=== PATIENT | female | born 1960 | race Two or more races ===

== ENCOUNTER 2024-05-07 02:38 | Emergency (ER) | payer OTHER, BC, SELFPAY ==
[2024-05-07 02:39] VITALS: BMI 32.3
[2024-05-07 03:32] VITALS: BP 153/86; PULSE 85; RESP 18; TEMP 36.8; O2SAT 100
--- NOTE | 2024-05-07 03:50 | PD.EDURI ---
Upper Respiratory Inf. RME/HPI General Chief Complaint: Flu Like Symptoms Stated Complaint: COVID POSITIVE, HEADACHE, COUGH, NOT FEELING GOOD Time Seen by Provider: 05/07/24 03:50 Source: patient Arrival date/time: 05/07/24 02:38 63-year-old female past medical history of hypertension presents emergency department complaining of headache, cough, and not feeling well after testing positive for COVID this past Monday. Patient reports she is currently on Paxlovid medication and has improved symptoms but is requesting to get tested for COVID again due to family member at home also being sick. Mode of arrival: ambulatory Limitations: no limitations Related Data Home Medications ?Medication ?Instructions ?Recorded ?Confirmed Levothyroxine * (SYNTHROID *) 100 mcg PO ACBR #0 tabs 05/12/17 amlodipine 10 mg tablet (Norvasc) 10 mg PO QDAY #0 tabs 05/12/17 Previous Rx's ?Medication ?Instructions ?Recorded Hydrocodone Bit/Acetaminophen 1 tab PO Q4HR PRN PAIN #20 tabs 05/12/17 (Hydrocodone-Apap 10/325 Mg Tab) ondansetron 4 mg disintegrating 4 mg PO Q8H PRN nausea and 07/07/23 tablet vomiting #15 tabs Allergies Allergy/AdvReac Type Severity Reaction Status Date / Time VICRYL SUSTURE Allergy Severe body Uncoded 08/02/10 04:59 rejects susture Review of Systems Review of Systems Systems Reviewed: All systems reviewed, normal except as documented Constitutional Constitutional: Reports system reviewed and no additional complaints, except as documented, Denies body ache(s), Denies chills, Denies fever(s) and Reports headache(s) Eyes Eyes: Reports system reviewed and no additional complaints, except as documented and Denies change in vision ENT Ears, Nose, Mouth, and Throat: Reports system reviewed and no additional complaints, except as documented, Denies disequilibrium, Denies dizziness, Reports headache(s), Denies sore throat and Denies vertigo Cardiovascular Cardiovascular: Reports system reviewed and no additional complaints, except as documented, Denies chest pain and Denies dyspnea Respiratory Respiratory: Reports system reviewed and no additional complaints, except as documented, Denies chest congestion, Reports cough and Denies dyspnea Gastrointestinal Gastrointestinal: Reports system reviewed and no additional complaints, except as documented, Denies abdominal pain, Denies nausea and Denies vomiting Musculoskeletal Musculoskeletal: Reports system reviewed and no additional complaints, except as documented, Denies abnormal gait and Denies arthralgias Integumentary/Breasts Skin/Breast: Reports system reviewed and no additional complaints, except as documented, Denies erythema, Denies rash and Denies wounds Neurologic Neurologic: Reports system reviewed and no additional complaints, except as documented, Denies abnormal gait, Denies disequilibrium, Denies dizziness, Reports headache(s) and Denies vertigo Past Medical History Past Medical History CARDIAC: Positive Cardiac Disorders, Edema and Hypertension; Negative Congestive Heart Failure RESPIRATORY: Negative Chronic Obstructive Pulmonary Disease (COPD) GENITOURINARY: Negative Renal Disease REPRODUCTIVE: Positive Breast Cancer ENDOCRINE: Positive Endocrine Disorders, Hyperthyroidism and Hypothyroidism; Negative Diabetes Mellitus Type 1 or Diabetes Mellitus Type 2 OTHER HISTORY: Positive Cancer and Breast Cancer Surgical History SURGICAL: Positive Mastectomy (Right) Social History SMOKING STATUS: Current every day smoker ED Exam General Limitations: Present no limitations General appearance: Present alert and in no apparent distress Head Head exam: Present atraumatic Eye Eye exam: Present normal appearance, PERRL and EOMI ENT ENT exam: Present normal exam, normal oropharynx and mucous membranes moist Neck Neck exam: Present normal inspection, full ROM and trachea midline Chest Chest inspection: Present normal inspection and symmetric chest wall rise Respiratory Respiratory exam: Present normal lung sounds bilaterally Cardiovascular Cardiovascular exam: Present regular rate, normal rhythm and normal heart sounds Abdominal Exam Abdominal exam: Present soft and normal bowel sounds Extremities Exam Extremities exam: Present normal inspection and full ROM Back Exam Back exam: Present normal inspection and full ROM Neurological Exam Neurological exam: Present alert, oriented X3 and CN II-XII intact Psychiatric Psychiatric exam: Present normal affect and normal mood Skin Skin exam: Present warm, dry, intact and normal color Course Quality Measures none Vital Signs Vital signs: Vital Signs Temperature 98.2 F 05/07/24 03:32 Pulse Rate 85 05/07/24 03:32 Respiratory Rate 18 05/07/24 03:32 Blood Pressure 153/86 H 05/07/24 03:32 Pulse Oximetry (%) 100 05/07/24 03:32 Oxygen Delivery Method Room Air 05/07/24 03:32 100% room air within normal limits Upper Respiratory Infection MDM Narrative MDM Narrative:: 63-year-old female past medical history of hypertension presents emergency department complaining of headache, cough, and not feeling well after testing positive for COVID this past Monday. Patient reports she is currently on Paxlovid medication and has improved symptoms but is requesting to get tested for COVID again due to family member at home also being sick. Patient appears nontoxic and is hemodynamically stable. Patient speaking in full sentences and 100% on room air. No adventitious lung sounds on auscultation. Instructed patient to keep taking medication as prescribed by her provider and have close follow-up with primary care provider in 2 to 3 days. Instructed to return to emergency department for any worsening symptoms or as needed. Patient data External records reviewed:: [facility] previous records Clinical information provided by:: patient Social determinants that could affect healthcare access:: none Patient has the following chronic illnesses:: See chart How is presenting disease/condition affected by chronic disease/condition?: uneffected by Evaluation data The following diagnostics were reviewed and interpreted by me:: other (specify) (N/A) Lab and/or radiology exams considered but not ordered:: N/A Interpretation Summary: N/A Medications / Prescriptions Medications or Prescriptions considered but not ordered:: N/A Medication administrations:: N/A Consultations Consultation(s) initiated? (list below): No Diagnosis Upper Respiratory Differential Diagnosis: upper respiratory infection, otitis media, sinusitis, viral infection, bronchitis, influenza, pharyngitis and other (Pneumonia) Most likely diagnosis given after review of the tests above:: COVID-19 Admission Indicated Admission indicated?: not indicated Admission Request Was there a request for admission?: No Disposition Plan Disposition Plan: Discharge Discharge Attestation Discharge Attestation: The patient and all family members were given an opportunity to ask questions and understood the discharge instructions. Discharge instructions specifically effects, indications for sooner follow up or return to the emergency department, and the expected course of current diagnosis. Patient condition: Stable Discharge Plan Plan Patient Disposition: HOME (Self Care) Disposition Comment: Stable Prescriptions/Referrals Prescriptions/Med Rec: No Action amlodipine [Norvasc] 10 MG tablet 10 mg PO QDAY Qty: 0 Levothyroxine * (SYNTHROID *) 100 MCG tablet 100 mcg PO ACBR Qty: 0 Hydrocodone Bit/Acetaminophen (Hydrocodone-Apap 10/325 Mg Tab) 1 UDTAB tablet 1 tab PO Q4HR PRN (Reason: PAIN) Qty: 20 0RF ondansetron 4 mg tablet,disintegrating 4 mg PO Q8H PRN (Reason: nausea and vomiting) Qty: 15 0RF Problem List Clinical Impression: COVID-19 Patient/Caregiver Discharge Instructions Discharge Activity: activity as tolerated Education Materials: COVID-19 Prevention, COVID-19 Home Care Additional Instructions: Continue taking Paxlovid as prescribed by your primary care provider. Fluids as tolerated. Take Tylenol or ibuprofen as needed for fever or pain. Close follow-up with primary care provider in 2 to 3 days. Return to emergency department for any worsening symptoms or as needed. Print Language: Sami Stand Alone Forms: Janet Award Info., Patient Portal Info Letter PA/PROJECT CONTROL OFFICER Supervising Physician PA/PROJECT CONTROL OFFICER Supervising Physician: Dr. Hernandez
== END 2024-05-07 04:15 | disposition home or self-care (01) ==
LOC: SERX 04:07
PROVIDERS: Emergency Provider Emergency Medicine; PCP Internal Medicine
DX: U07.1 COVID-19 (principal); I10 Essential (primary) hypertension
CPT/HCPCS: 99281

== ENCOUNTER → 2024-06-27 | Outpatient (CLI) | payer OTHER, BC, SELFPAY ==
[2024-06-27 12:59] LABS: Basophils # (Auto) 0.1 Thou/mm3 (0.0-0.2); Basophils % (Auto) 1 % (0-2.5); Eosinophils # (Auto) 0.1 Thou/mm3 (0.0-0.5); Eosinophils % (Auto) 2 % (0-10); Hematocrit 36.3 % (36.0-46.0); Hemoglobin 12.5 g/dL (12.0-16.0); Immature Granulocytes % (Auto) 0 % (0-0); Immature Granulocytes Auto 0.02 Thou/mm3 (0.00-0.00); Lymphocytes # (Auto) 3.1 Thou/mm3 (1.0-4.8); Lymphocytes % (Auto) 42 % (10-50); Mean Corpuscular HGB Conc 34.4 g/dl (31.0-37.0); Mean Corpuscular Hemoglobin 29.6 pg (25.0-35.0); Mean Corpuscular Volume 86 fL (80-100); Monocytes # (Auto) 0.5 Thou/mm3 (0.0-0.8); Monocytes % (Auto) 7 % (0-12); Neutrophils # (Auto) 3.4 Thou/mm3 (1.8-7.7); Neutrophils % (Auto) 47 % (37-80); Nucleated Red Blood Cell % 0 /100 WBC (0); Platelet Count 309 Thou/mm3 (140-440); RDW Standard Deviation 41.8 fL (36.4-46.3); Red Blood Count 4.22 Miln/mm3 (4.00-5.20); White Blood Count 7.2 Thou/mm3 (3.6-11.0)
[2024-06-27 13:16] LABS: Bilirubin,Direct 0.3 mg/dL (0.0-0.3); Cardiac Risk Estimate 2.4 RATIO (3.7-5.6); Cholesterol 193 mg/dL (132-200); Free T4 (Free Thyroxine) 1.63 ng/dL (0.89-1.76); HDL Cholesterol 82 mg/dL (40-60); LDL Cholesterol,Calculated 89 mg/dL (0-130); Triglycerides 109 mg/dL (30-150)
[2024-06-27 13:21] LABS: Vitamin D 25 Hydroxy Total 28.2 ng/mL (7.3-40.2)
== END | disposition home or self-care (01) ==
PROVIDERS: PCP Internal Medicine; Referring Provider Internal Medicine; Visit Provider Internal Medicine
DX: E03.9 Hypothyroidism, unspecified (principal); K30 Functional dyspepsia; M54.50 Low back pain, unspecified; E03.4 Atrophy of thyroid (acquired)
CPT/HCPCS: 36415; 80061; 81001; 82248; 82306; 83013; 83014; 84439; 84443; 85025

== ENCOUNTER → 2024-06-27 | Outpatient (CLI) | payer OTHER, SELFPAY ==
--- NOTE | 2024-06-27 10:51 | XR_ITS ---
Examination: Lumbar spine, 5 views Technique: Lumbar spine AP, lateral, coned lateral lower lumbar spine, bilateral obliques 5 views Exam date and time: July 07, 2024 1053 hours Comparison April 23, 2019 INDICATIONS: Back surgery 2020 with back pain beginning 2 years ago FINDINGS: Moderate osteopenia Chronic wedging L1 T12 T11 and Transpedicular lumbar fusion L2-L4 Grade 1 anterolisthesis L4 on L5, 9 mm with fusion at this site Mild degenerative disc disease L5-S1 IMPRESSION: Status post lumbar fusions as above Mild degenerative disc disease L5-S1
== END | disposition home or self-care (01) ==
PROVIDERS: Referring Provider Orthopaedic Surgery; Visit Provider Orthopaedic Surgery
DX: M51.379 Other intervertebral disc degeneration, lumbosacral region without mention of lumbar back pain or lower extremity pain (principal); M43.26 Fusion of spine, lumbar region; Z98.890 Other specified postprocedural states
CPT/HCPCS: 72110

== ENCOUNTER → 2024-07-01 | Outpatient (CLI) | payer OTHER, BC, SELFPAY ==
--- NOTE | 2024-07-01 15:15 | XR_ITS ---
Examination: Screening digital mammography, bilateral Computer aided detection 3-D breast Tomosynthesis, bilateral Date and time of exam: 07/01/2024, 3:11 PM Comparisons: 05/30/2023 Indications: Screening Technique: Nonmagnified MLO, CC views of the breasts to been obtained, reconstructed from 3-D Tomosynthesis images. R2 computer aided detection program utilized for evaluation of suspicious masses and/or abnormal calcifications. 3-D Tomosynthesis images obtained. Technologist: Findings: There are scattered areas of fibroglandular density. Stable postoperative changes in the right breast. No evidence of abnormal masses or suspicious calcifications. Impression: BI-RADS category 1: Negative findings (within normal) Recommend 1 year follow-up mammogram
[2024-07-01 20:19] LABS: Urea Breath Test Negative (Negative)
== END | disposition home or self-care (01) ==
LOC: CDIM 14:58 → COPL 15:26
PROVIDERS: PCP Internal Medicine; Referring Provider Internal Medicine; Visit Provider Internal Medicine
DX: Z12.31 Encounter for screening mammogram for malignant neoplasm of breast (principal); R92.313 Mammographic fatty tissue density, bilateral breasts; K30 Functional dyspepsia; E03.9 Hypothyroidism, unspecified
CPT/HCPCS: 77063; 77067; 83013; 83014

== ENCOUNTER → 2024-11-26 | Outpatient (CLI) | payer OTHER, BC, SELFPAY ==
[2024-11-26 13:00] LABS: Basophils # (Auto) 0.1 Thou/mm3 (0.0-0.2); Basophils % (Auto) 1 % (0-2.5); Eosinophils # (Auto) 0.1 Thou/mm3 (0.0-0.5); Eosinophils % (Auto) 2 % (0-10); Hematocrit 37.5 % (36.0-46.0); Hemoglobin 12.6 g/dL (12.0-16.0); Immature Granulocytes Auto 0.02 Thou/mm3 (0.00-0.00); Lymphocytes # (Auto) 2.7 Thou/mm3 (1.0-4.8); Lymphocytes % (Auto) 37 % (10-50); Mean Corpuscular HGB Conc 33.6 g/dl (31.0-37.0); Mean Corpuscular Hemoglobin 29.6 pg (25.0-35.0); Mean Corpuscular Volume 88 fL (80-100); Monocytes # (Auto) 0.5 Thou/mm3 (0.0-0.8); Monocytes % (Auto) 7 % (0-12); Neutrophils # (Auto) 4.0 Thou/mm3 (1.8-7.7); Neutrophils % (Auto) 54 % (37-80); Nucleated Red Blood Cell # 0.00 Thou/mm3 (0.00-0.00); Nucleated Red Blood Cell % 0 /100 WBC (0); Platelet Count 292 Thou/mm3 (140-440); RDW Standard Deviation 43.7 fL (36.4-46.3); Red Blood Count 4.26 Miln/mm3 (4.00-5.20); White Blood Count 7.4 Thou/mm3 (3.6-11.0)
[2024-11-26 13:11] LABS: Alanine Aminotransferase 14 U/L (10-49); Albumin, Serum 4.5 gm/dL (3.4-4.8); Albumin/Globulin Ratio 2.0 (1.2-2.2); Alkaline Phosphatase 73 U/L (46-116); Anion Gap 9 (7-16); Aspartate Amino Transferase 20 U/L (0-34); BUN/Creatinine Ratio 21 Ratio (12-20); Bilirubin,Direct 0.2 mg/dL (0.0-0.3); Bilirubin,Total 0.8 mg/dL (0.3-1.2); Blood Urea Nitrogen 15 mg/dL (9-23); Calcium 9.3 mg/dL (8.3-10.6); Calcium (Corrected) 9.3 mg/dL (8.5-10.1); Carbon Dioxide 24.3 mMol/L (20.0-31.0); Chloride 108 mMol/L (98-107); Creatinine (Component) 0.7 mg/dL (0.6-1.3); Globulin 2.3 gm/dL (2.3-3.5); Glucose 97 mg/dL (74-106); Osmolality,Calculated 282 (275-295); Potassium 3.6 mMol/L (3.4-5.1); Sodium 141 mMol/L (136-145); Total Protein 6.8 gm/dL (5.7-8.2); eGFR > 60 See Note
[2024-11-26 13:15] LABS: Vitamin D 25 Hydroxy Total 12.8 ng/mL (7.3-40.2)
[2024-12-24 07:08] LABS: Cortisol,total,LC/MS/MS* 10.1 mcg/dL
== END | disposition home or self-care (01) ==
LOC: COPL 11:59
PROVIDERS: PCP Internal Medicine; Referring Provider Internal Medicine; Visit Provider Orthopaedic Surgery
DX: I10 Essential (primary) hypertension (principal); Z79.1 Long term (current) use of non-steroidal anti-inflammatories (NSAID)
CPT/HCPCS: 36415; 80053; 82248; 82306; 82533; 85025

== ENCOUNTER 2024-12-02 12:45 | Day surgery (SDC) | payer OTHER, SELFPAY ==
[2024-12-02] VITALS (14 sets, daily range): BP systolic 128–160; BP diastolic 79–104; PULSE 84–97; RESP 12–20; TEMP 36.8–36.9; O2SAT 94–100; BMI 33.1
[2024-12-02] MEDS: BENZOCAINE 20% (Hurricaine) SPRAY 1 DOSE TOP (14:35)
[2024-12-02] MEDS: SODIUM CHLORIDE 0.9% 500 ML 500 ML 20 ML IV (14:35)
[2024-12-02] MEDS: fentaNYL CIT INJ 50 mCg/ML AMP 2ML (ASD USE ONLY) IVP (15:05)
[2024-12-02] MEDS: MIDAZOLAM INJ 1 MG/ML VIAL 2 ML (ASD USE ONLY) 2 MG IVP (15:05)
== END 2024-12-02 16:04 | disposition home or self-care (01) ==
PROVIDERS: PCP Internal Medicine; Referring Provider Specialist; Visit Provider Specialist
PROC: 0DBE8ZX Excision of Large Intestine, Via Natural or Artificial Opening Endoscopic, Diagnostic (ICD-10-PCS; CPT 45380; principal; 2024-12-02 09:15)
PROC: (CPT 43239; 2024-12-02 09:15)
DX: D21.4 Benign neoplasm of connective and other soft tissue of abdomen (principal); D21.5 Benign neoplasm of connective and other soft tissue of pelvis; K52.9 Noninfective gastroenteritis and colitis, unspecified; K63.89 Other specified diseases of intestine; K62.89 Other specified diseases of anus and rectum; K64.9 Unspecified hemorrhoids; Z90.49 Acquired absence of other specified parts of digestive tract; R13.10 Dysphagia, unspecified; K20.80 Other esophagitis without bleeding; K22.2 Esophageal obstruction; K29.70 Gastritis, unspecified, without bleeding; K31.A0 Gastric intestinal metaplasia, unspecified
CPT/HCPCS: 45385; 45380; 43248; 43239; C1769; J1200; J2250; J3010; J7999; A9270

== ENCOUNTER → 2025-01-16 | Outpatient (CLI) | payer OTHER, SELFPAY ==
[2025-01-17 09:28] LABS: BVAG Candida Negative (Negative); Bacterial Vaginosis Markers Negative (Negative); Candida glabrata Negative (Negative); Candida krusei PCR Negative (Negative); Trichomonas Negative (Negative)
== END | disposition home or self-care (01) ==
LOC: SLDO 14:31
PROVIDERS: Referring Provider Specialist; Visit Provider Specialist
DX: B37.89 Other sites of candidiasis (principal); N76.0 Acute vaginitis; A59.01 Trichomonal vulvovaginitis
CPT/HCPCS: 81514